=== PATIENT | female | born 1960 | race Caucasian/White ===

== ENCOUNTER 2019-02-06 20:59 | Emergency (ER) | payer OTHER ==
[2019-02-06] MEDS ORDERED: DIPHTH,PERTUSS(ACELL),TET 0.5 ML DISP.SYRIN IM ONE ×2 (21:18)
--- NOTE | 2019-02-06 21:18 | PDOC ---
History of Present Illness - General History Source: Patient Exam Limitations: No Limitations - History of Present Illness Initial Comments: 02/06/19 22:06 The patient is a 58 year old female, with no significant PMH, who presents to the emergency department with a left finger laceration that occurred today. The patient states she was cutting a piece of bread when she accidently slit her 3rd digit left finger. She noticed mild bleeding and pain to the site, no relief with hydrogen peroxide. The patient denies any numbness or tingling. Denies any other injuries. Allergies: aspirin, Penicillins, Sulfa Past surgical history: None reported Social history: None reported PCP: None reported <Frank Kent - Last Filed: 02/06/19 22:06> <Eloisa Adame - Last Filed: 02/07/19 06:43> - General Chief Complaint: Laceration Stated Complaint: CUT LEFT MIDDLE FINGER WITH KNIFE Time Seen by Provider: 02/06/19 21:01 Past History <Frank Kent - Last Filed: 02/06/19 22:06> - Suicide/Smoking/Psychosocial Hx Smoking Status: No Smoking History: Never smoked Number of Cigarettes Smoked Daily: 0 Hx Alcohol Use: No Substance Use Type: None <Eloisa Adame - Last Filed: 02/07/19 06:43> - Past Medical History Allergies/Adverse Reactions: Allergies Allergy/AdvReac Type Severity Reaction Status Date / Time aspirin Allergy Verified 06/02/14 20:51 Penicillins Allergy Verified 06/02/14 20:51 Sulfa (Sulfonamide Allergy Verified 06/02/14 20:51 Antibiotics) Home Medications: Ambulatory Orders NK [No Known Home Medication] 06/02/14 Review of Systems - Review of Systems Able to Perform ROS?: Yes Comments:: 02/06/19 22:07 GENERAL/CONSTITUTIONAL: No fever or chills. No weakness. HEAD, EYES, EARS, NOSE AND THROAT: No change in vision. No ear pain or discharge. No sore throat. CARDIOVASCULAR: No chest pain or shortness of breath. RESPIRATORY: No cough, wheezing, or hemoptysis. GASTROINTESTINAL: No nausea, vomiting, diarrhea or constipation. GENITOURINARY: No dysuria, frequency, or change in urination. MUSCULOSKELETAL: No joint or muscle swelling or pain. No neck or back pain. SKIN:+3rd left finger laceration NEUROLOGIC: No headache, vertigo, loss of consciousness, or change in strength/ sensation. ENDOCRINE: No increased thirst. No abnormal weight change. HEMATOLOGIC/LYMPHATIC: No anemia, easy bleeding, or history of blood clots. ALLERGIC/IMMUNOLOGIC: No hives or skin allergy. <Frank Kent - Last Filed: 02/06/19 22:06> *Physical Exam - Vital Signs Last Vital Signs Temp Pulse Resp BP Pulse Ox 98.6 F 72 17 109/67 100 02/06/19 21:14 02/06/19 21:14 02/06/19 21:14 02/06/19 21:14 02/06/19 21:14 - Physical Exam Comments: 02/06/19 22:07 GENERAL: Awake, alert, and fully oriented, in no acute distress HEAD: No signs of trauma NEUROLOGICAL: Cranial nerves II through XII grossly intact. Normal speech, normal gait SKIN: +Superficial left 3rd finger cm flap laceration on palmar aspect of proximal phalanx just proximal of the PIP joint. No other injuries. <Frank Kent - Last Filed: 02/06/19 22:06> Moderate Sedation - Procedure Monitoring Vital Signs: Procedure Monitoring Vital Signs Temperature 98.6 F 02/06/19 21:14 Pulse Rate 72 02/06/19 21:14 Respiratory Rate 17 02/06/19 21:14 Blood Pressure 109/67 02/06/19 21:14 O2 Sat by Pulse Oximetry (%) 100 02/06/19 21:14 <Frank Kent - Last Filed: 02/06/19 22:06> Procedures - Laceration/Wound Repair Left Proximal Plantar Finger 3rd digit Wound Length: to 2.5 cm Wound's Depth, Shape: superficial Irrigated w/ Saline: Yes Betadine Prep: No Wound Repaired With: Dermabond Sterile Dressing Applied: No Splint Applied: No Sling Applied: No Progress: Area cleansed with sterile normal saline and patted dry with sterile gauze. Using sterile technique, [place] topical adhesive used to close the superficial laceration. Patient tolerated procedure well. <Eloisa Adame - Last Filed: 02/07/19 06:43> ED Treatment Course - Medications Given in the ED: ED Medications Discontinued Medications Generic Name Dose Route Start Last Admin Trade Name Freq PRN Reason Stop Dose Admin Diphtheria/Tetanus/Acell Pertussis 0.5 ml 02/06/19 21:18 02/06/19 21:20 Boostrix - IM 02/06/19 21:19 0.5 ml .ONCE ONE Administration <Frank Knet - Last Filed: 02/06/19 22:06> Progress Note - Progress Note Progress Note: Documentation has been prepared under my direction and personally reviewed by me in its entirety. I attest that this documented accurately reflects all work, treatment, procedures and medical decision making performed by me. <Eloisa Adame - Last Filed: 02/07/19 06:43> Medical Decision Making - Medical Decision Making As noted above, this 58-year-old woman presents with a history of cutting her left third finger while cutting bread just prior to presentation. Patient presented here because of persistent bleeding from the superficial flap laceration. Exam as noted: No evidence of full thickness laceration on exam. No motor or sensory deficit present. Boostrix vaccination given Closure of wound with skin adhesive as noted above. Patient tolerated procedure well. The patient preferred leaving the wound open at this time. She will use protective dressing of 2 x 2 sterile gauze and tape tomorrow while at work . She will remove the dressing when she returns home. She should return here or see her doctor if any signs of infection develop. <Eloisa Adame - Last Filed: 02/07/19 06:43> *DC/Admit/Observation/Transfer - Attestations Scribe Attestion: 02/06/19 22:07 Documentation prepared by Frank Kent, acting as center medical and lab director for Eloisa Adame MD. <rFank Kent - Last Filed: 02/06/19 22:06> <Eloisa Adame - Last Filed: 02/07/19 06:43> Diagnosis at time of Disposition: Finger laceration Qualifiers: Encounter type: initial encounter Finger: middle finger Damage to nail status: without damage Foreign body presence: without foreign body Laterality: left Qualified Code(s): S61.213A - Laceration without foreign body of left middle finger without damage to nail, initial encounter - Discharge Dispostion Disposition: HOME Condition at time of disposition: Stable - Patient Instructions Printed Discharge Instructions: DI for Laceration Repair With Dermabond Additional Instructions: Keep wound dry overnight Protective dressing as needed Return to ER or see your doctor very becomes very red/swollen/painful
[2019-02-06 21:21] VITALS: BP 109/67; PULSE 72; TEMP 98.6; BMI 20.5
== END 2019-02-06 21:54 | disposition home or self-care (01) ==
LOC: FER 20:59
PROC: 0HQGXZZ Repair Left Hand Skin, External Approach (ICD-10-PCS; principal; 2019-02-06)
DX: S61.213A Laceration without foreign body of left middle finger without damage to nail, initial encounter (principal); W26.0XXA Contact with knife, initial encounter; Y93.G1 Activity, food preparation and clean up; Y92.89 Other specified places as the place of occurrence of the external cause
CPT/HCPCS: 90715; 99281-25